=== PATIENT | female | born 1990 | race Caucasian/White ===

== ENCOUNTER 2016-10-31 13:28 | Emergency (ER) | payer MEDICAID ==
[~2016-10-31] VITALS: Ht 167.6 cm; Wt 54.4 kg
[2016-10-31 14:31] VITALS: BP 107/68
[2016-10-31] MEDS ORDERED: KETOROLAC TROMETH 60MG/2ML VIAL IM ONE (14:45)
[2016-10-31] MEDS ORDERED: methylPREDNISolone SOD SUCC 125 MG/2 ML VL IM ONE (14:45)
[2016-10-31] MEDS ORDERED: cefTRIAXone SOD 1,000 MG VL IM ONE (14:45)
== END 2016-10-31 15:03 | disposition home or self-care (01) ==
LOC: ER 13:30
DX: J03.90 Acute tonsillitis, unspecified (principal); F17.210 Nicotine dependence, cigarettes, uncomplicated; F12.10 Cannabis abuse, uncomplicated; F15.10 Other stimulant abuse, uncomplicated
CPT/HCPCS: 87880; 96372; 99284; J0696; J1885; J2930

== ENCOUNTER 2017-09-27 10:20 | Emergency (ER) | payer MEDICAID ==
[~2017-09-27] VITALS: Ht 167.6 cm; Wt 59.0 kg
[2017-09-27] MEDS ORDERED: cefTRIAXone SOD 1,000 MG VL IM ONE (10:45)
[2017-09-27] MEDS ORDERED: LIDOCAINE 2% (LOCAL ANESTH.) PF 5ml SDV ONE (11:11)
[2017-09-27 11:21] VITALS: BP 119/48
== END 2017-09-27 11:26 | disposition home or self-care (01) ==
LOC: ER 10:20
DX: K04.7 Periapical abscess without sinus (principal); F17.210 Nicotine dependence, cigarettes, uncomplicated
CPT/HCPCS: 96372; 99283; J0696